=== PATIENT | male | born 1970 | race Caucasian/White ===

== ENCOUNTER 2022-01-07 10:23 | Outpatient (CLI) | payer OTHER, SELFPAY ==
--- NOTE | ~2022-01-07 | XR_ITS ---
EXAM: XR hand BI arthritis min 3V DATE: 01/07/2022 11:01 HISTORY: chronic Polyarthritis . COMPARISON: None available. FINDINGS: Normal mineralization. No fracture or dislocation. No lytic or blastic lesion. Narrowing, sclerosis, and pronounced osteophytosis involving multiple joints including the DIP and PIP joints of the fingers, MCP joints, and some interphalangeal joints, most severe in the second and third bilate ral MCP and PIP joints. Hooklike osteophytes at the bilateral second and third metacarpals. Degenerat jennifer change in the right DRUJ. No erosion or periosteal change. No chondrocalcinosis. Soft tissue swel ling over the involved joints. IMPRESSION: Osteoarthritic type joint changes detailed above, in an atypical distribution which may i ndicate presence of posttraumatic change, CPPD, or hemachromatosis. Reviewed, dictated and finalized at location K. IMPRESSION: Osteoarthritic type joint changes detailed above, in an atypical di stribution which may indicate presence of posttraumatic change, CPPD, or hemach romatosis.
[2022-01-07 10:40] LABS: Hematocrit 46.4 % (40.0-54.0); Hemoglobin 15.4 g/dL (14.0-18.0); Mean Corpuscular HGB Conc 33.2 g/dL (32.0-36.0); Mean Corpuscular Hemoglobin 30.5 pg (27.0-31.0); Mean Corpuscular Volume 91.9 fL (78.0-102.0); Mean Platelet Volume 10.4 fl (8.7-11.0); Platelet Count Result 288 K/mm3 (150-420); Red Blood Count 5.05 M/mm3 (4.70-6.10); Red Cell Distribution Width 14.5 % (11.6-14.4); White Blood Count 11.5 K/mm3 (4.8-10.8)
[2022-01-07 10:57] LABS: Rheumatoid Factor Screen Negative (Negative)
[2022-01-07 11:15] LABS: Alanine Aminotransferase 47 U/L (16-63); Albumin Level 3.9 g/dL (3.4-5.0); Anion Gap 8 mmol/L (8-16); Aspartate Amino Transferase 28 U/L (15-37); Bilirubin,Total 0.3 mg/dL (0.00-1.00); Blood Urea Nitrogen 14 mg/dL (7-18); Carbon Dioxide 29 mmol/L (21-32); Chloride 103 mmol/L (98-108); Estimated Glomerular Filt Rate > 60; Glucose 109 mg/dL (70-99); Osmolality Calculated 291 mOsm/kg (285-295); Potassium 4.7 mmol/L (3.5-5.1); Sodium 140 mmol/L (136-145); Total Protein 6.7 g/dL (6.4-8.2); Triglycerides 76 mg/dL (0-150)
[2022-01-07 11:16] LABS: Alkaline Phosphatase 41 U/L (46-116); Cholesterol 195 mg/dL (0-200); HDL Direct 50 mg/dL (40-60); LDL Cholesterol Calculated 130 mg/dL (<130); Prostate Specific Antigen 2.3 ng/mL (< OR = 4.0)
[2022-01-07 11:19] LABS: CRP < 0.2 mg/dL (0.0-0.9)
[2022-01-13 21:26] LABS: ANA Cascade Screen Negative (Negative)
== END 2022-01-07 10:24 | disposition home or self-care (01) ==
LOC: CHSLAB 10:25
PROVIDERS: PCP Family Medicine; Visit Provider Family Medicine
DX: M13.0 Polyarthritis, unspecified (principal); I10 Essential (primary) hypertension; R35.1 Nocturia
CPT/HCPCS: 36415; 73130; 80053; 80061; 84153; 85027; 86038; 86140; 86430; G0103

== ENCOUNTER 2022-02-19 01:21 | Day surgery (SDC) | payer OTHER, SELFPAY ==
[2022-02-05 11:48] VITALS: BMI 27.6
[2022-02-19 08:37] VITALS: BP 129/83; PULSE 86; RESP 19; TEMP 36.2; O2SAT 99
[2022-02-19] MEDS: LACTATED RINGERS 1,000 ML 150 ML IV CONT (08:53)
--- NOTE | 2022-02-19 09:07 | WPDANESEPPF ---
Anes - Initial Pre Proc Eval Procedure: Operation Date: 02/19/22 09:45 Proposed Procedures p Screening Colonoscopy - Logan Elliott DO Date/Time: 02/19/22 09:07 Surgeon: Logan Elliott DO Pre Op Diagnosis: neoplasm screening Patient Data Age: 52 Gender: M Height: 1.68 m Weight: 75.8 kg Last Vital Signs Temp 97.1 F L 02/19/22 08:37 Pulse 86 02/19/22 08:37 Resp 19 02/19/22 08:37 BP 129/83 02/19/22 08:37 Pulse Ox 99 02/19/22 08:37 O2 Del Method Room Air 02/19/22 08:37 Allergies Allergy/AdvReac Type Severity Reaction Status Date / Time No Known Allergies Allergy Unknown Verified 02/19/22 08:36 Home Medications Medication Instructions Recorded Confirmed Type famotidine 10 mg tablet (Pepcid AC) 10 mg PO DAILY PRN Heartburn 08/01/19 02/05/22 History multivitamin 1 tablet PO DAILY 08/01/19 02/05/22 History meloxicam 15 mg tablet 15 mg PO DAILY #90 tabs 09/29/21 02/05/22 Rx lisinopril 20 1 tablet PO DAILY #30 tabs 02/16/22 02/19/22 Rx mg-hydrochlorothiazide 25 mg tablet Patient hx anesthesia problems: none Family hx anesthesia problems: none Results Review: All pre-operative results and documents have been reviewed as part of the pre-operative evaluation. [facility] Past Medical History Medical History Chronic arthralgias of knees and hips Erectile dysfunction GERD (gastroesophageal reflux disease) HTN (hypertension) Tobacco use disorder Surgical History Surgical History History of bilateral hip replacements 07/2016 and 10/2016 Family History Family History Mother Family history of pancreatic cancer Patient's mother is Father Patient's father is Other Diabetes mellitus Family history of arthritis Family history of malignant neoplasm Social History Social History Years smoked: 32 Smoking status: Current some day smoker Second hand tobacco smoke exposure: Yes Alcohol intake: current Drinks per week: 6 Alcohol use details: beers Substance use: current Substance use type: marijuana Living arrangements: alone 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 Informed Consent: The patient's anesthetic plan and its attendant risks and benefits were discussed with the patient/family/POA. Questions were solicited and answers provided to the satisfaction of the patient/family/POA.
--- NOTE | 2022-02-19 09:25 | PM.IMHP ---
H&P: HPI History of Present Illness Date/Time: 02/19/22 09:25 Chief Complaint: Screening for colorectal cancer Narrative: this is a 52-year-old man who presents for colonoscopy. He has never had a colonoscopy before. He denies any hematochezia or melena. He does have a family history of colon cancer in his grandmother, but no first-degree family members. Review of Systems Review of Systems: All systems reviewed & are unremarkable except as noted in HPI and below Constitutional: Constitutional: Denies chills, Denies fever(s), Denies headache(s) and Denies weight loss Eyes: Eyes: Denies change in vision ENT: Denies dizziness, Denies headache(s), Denies neck mass and Denies throat swelling Cardiovascular: Cardiovascular: Denies chest pain, Denies lightheadedness and Denies dyspnea Respiratory: Respiratory: Denies cough, Denies dyspnea and Denies wheezing Gastrointestinal: Gastrointestinal: Denies abdominal pain, Denies change in bowel habits, Denies nausea and Denies vomiting Genitourinary: Genitourinary: Denies hematuria and Denies dysuria Musculoskeletal: Musculoskeletal: Reports as per HPI Integumentary/Breasts: Skin/Breast: Reports as per HPI Neurologic: Denies dizziness and Denies headache(s) Allergic/Immunologic: Allergic/Immunologic: Denies throat swelling and Denies wheezing PMFSH Past Medical History Medical History Chronic arthralgias of knees and hips Erectile dysfunction GERD (gastroesophageal reflux disease) HTN (hypertension) Tobacco use disorder Surgical History Surgical History History of bilateral hip replacements 07/2016 and 10/2016 Family History Family History Mother Family history of pancreatic cancer Patient's mother is Father Patient's father is Other Diabetes mellitus Family history of arthritis Family history of malignant neoplasm Social History Social History Years smoked: 32 Smoking status: Current some day smoker Second hand tobacco smoke exposure: Yes Alcohol intake: current Drinks per week: 6 Alcohol use details: beers Substance use: current Substance use type: marijuana Living arrangements: alone 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 Gender identity (if verbalized by the patient): Male Spiritual care concerns: No Meds Home Medications and Allergies Home Medications Medication Instructions Recorded Confirmed Type famotidine 10 mg tablet (Pepcid AC) 10 mg PO DAILY PRN Heartburn 08/01/19 02/05/22 History multivitamin 1 tablet PO DAILY 08/01/19 02/05/22 History meloxicam 15 mg tablet 15 mg PO DAILY #90 tabs 09/29/21 02/05/22 Rx lisinopril 20 1 tablet PO DAILY #30 tabs 02/16/22 02/19/22 Rx mg-hydrochlorothiazide 25 mg tablet Allergies Allergy/AdvReac Type Severity Reaction Status Date / Time No Known Allergies Allergy Unknown Verified 02/19/22 08:36 Vital Signs Vital Signs - 24 hr 02/19/22 08:37 Temperature 36.2 C L Pulse Rate 86 Respiratory Rate 19 Blood Pressure 129/83 Pulse Oximetry 99 Oxygen Delivery Room Air Exam Const: General: no acute distress and alert Orientation/consciousness: patient oriented x3 HENMT: Head: normocephalic and atraumatic Ears: hearing grossly normal bilaterally General nose exam: Normal nares present Mouth: Yes Normal oral and palatal mucosa present Eyes: Periorbital: periorbital findings normal Sclera: sclerae normal EOM: EOMs intact bilaterally Neck: Neck: normal visual inspection, no lymphadenopathy and trachea midline Chest: Chest palpation & inspection: normal inspection of the chest Resp: Effort & Inspection: normal respiratory effort Auscultation: clear to auscultation bilaterally Cardio: Ju
[2022-02-19 10:09] VITALS: BP 97/59; PULSE 78; RESP 20; O2SAT 94
[2022-02-19 10:19] VITALS: BP 109/75; PULSE 72; RESP 19; O2SAT 100
[2022-02-19 10:29] VITALS: BP 125/85; PULSE 70; RESP 19; O2SAT 100
== END 2022-02-19 10:38 | disposition home or self-care (01) ==
PROVIDERS: PCP Family Medicine; Visit Provider Surgery
PROC: 0DJD8ZZ Inspection of Lower Intestinal Tract, Via Natural or Artificial Opening Endoscopic (ICD-10-PCS; CPT 45378; principal; 2022-02-19 09:45)
DX: Z12.11 Encounter for screening for malignant neoplasm of colon (principal); D12.5 Benign neoplasm of sigmoid colon; D12.8 Benign neoplasm of rectum; K63.5 Polyp of colon; K57.30 Diverticulosis of large intestine without perforation or abscess without bleeding; Z80.0 Family history of malignant neoplasm of digestive organs; K64.8 Other hemorrhoids; K21.9 Gastro-esophageal reflux disease without esophagitis; I10 Essential (primary) hypertension; F17.210 Nicotine dependence, cigarettes, uncomplicated; F12.90 Cannabis use, unspecified, uncomplicated
CPT/HCPCS: 45385; 45380; 88305; J2704; J7120

== ENCOUNTER 2022-08-05 10:28 | Outpatient (CLI) | payer OTHER, SELFPAY ==
--- NOTE | ~2022-08-05 | XR_ITS ---
XR hand RT min 3V DATE: 08/05/2022 11:01 INDICATION: Severe right elbow pain, radiating to shoulder and hand. No known injury. TECHNIQUE: 3 views of right hand COMPARISON: 01/07/2022 bilateral hands FINDINGS: First through fourth metacarpophalangeal osteophytic change, involving particularly the fir st through third MCP joints. Osteoarthritic change at the proximal and distal interphalangeal joints. No fracture or dislocation, periosteal reaction or bone destruction, erosive change or chondrocalcino sis. IMPRESSION: Polyarticular osteoarthritis Reviewed, dictated and finalized at location B. SAFETY MANAGER
--- NOTE | ~2022-08-05 | XR_ITS ---
EXAM: XR elbow RT min 3V DATE: 08/05/2022 11:01 HISTORY: SEVERE RT ELBOW PAIN INTO SHOULDER/HAND,NKI,?GOUT,LROM . COMPARISON: None available. FINDINGS: Normal mineralization. No acute fracture or dislocation. No lytic or blastic lesion. Ossif ic fragments medially may represent old avulsion fractures or fractured osteophytes/enthesophytes. Mo derate joint space narrowing narrowing, sclerosis, and osteophytosis. No erosion or periosteal change . Small elbow joint effusion. Soft tissue swelling about the elbow. IMPRESSION: Moderate osteoarthritis of the right elbow. No radiographic findings to suggest crystalli ne arthropathy. Small elbow joint effusion, likely related to degenerative changes in the absence of trauma. Reviewed, dictated and finalized at location K. M CLOTHES PRESS OPERATOR IMPRESSION: Moderate osteoarthritis of the right elbow. No radiographic finding s to suggest crystalline arthropathy. Small elbow joint effusion, likely relate d to degenerative changes in the absence of trauma.
[2022-08-05 10:46] LABS: Hematocrit 44.6 % (40.0-54.0); Mean Corpuscular HGB Conc 33.6 g/dL (32.0-36.0); Mean Corpuscular Volume 89.2 fL (78.0-102.0); Mean Platelet Volume 9.7 fl (8.7-11.0); Platelet Count Result 286 K/mm3 (150-420); White Blood Count 12.4 K/mm3 (4.8-10.8)
[2022-08-05 11:13] LABS: Alanine Aminotransferase 40 U/L (16-63); Albumin Level 3.7 g/dL (3.4-5.0); Alkaline Phosphatase 46 U/L (46-116); Anion Gap 7 mmol/L (8-16); Aspartate Amino Transferase 26 U/L (15-37); Bilirubin,Total 0.7 mg/dL (0.00-1.00); Blood Urea Nitrogen 15 mg/dL (7-18); CRP 9.7 mg/dL (0.0-0.9); Calcium 9.1 mg/dL (8.5-10.1); Carbon Dioxide 32 mmol/L (21-32); Chloride 98 mmol/L (98-108); Estimated Glomerular Filt Rate > 60; Glucose 102 mg/dL (70-99); Osmolality Calculated 284 mOsm/kg (285-295); Potassium 4.2 mmol/L (3.5-5.1); Sodium 137 mmol/L (136-145); Total Protein 7.1 g/dL (6.4-8.2); Uric Acid 5.2 mg/dL (3.5-7.2)
[2022-08-09 08:11] LABS: ANA Cascade Screen Negative (Negative)
[2022-08-09 13:56] LABS: HLA B27 Negative (Negative)
== END 2022-08-05 10:29 | disposition home or self-care (01) ==
LOC: CHSLAB 10:30
PROVIDERS: PCP Family Medicine; Visit Provider Family Medicine
DX: M25.521 Pain in right elbow (principal); M79.641 Pain in right hand; M19.021 Primary osteoarthritis, right elbow; M25.421 Effusion, right elbow
CPT/HCPCS: 36415; 73080; 73130; 80053; 84550; 85027; 86038; 86140; 86430; 86812

== ENCOUNTER 2023-02-11 09:35 | Outpatient (CLI) | payer OTHER, SELFPAY ==
--- NOTE | ~2023-02-11 | XR_ITS ---
XR elbow LT min 3V 02/11/2023 10:25 Indication: Polyarthritis Procedure: 4 views left elbow Comparison: No prior studies for comparison. Findings: There is mild-moderate osteoarthritis of the elbow. There are ossific densities adjacent to the humeral epicondyles and medial to the joint space, likely related to degenerative change and/or remote trauma. No acute fracture or traumatic malalignment. No significant joint effusion. Impression: 1: Mild-moderate polyarticular osteoarthritis. Reviewed, dictated and finalized at location L. Impression: 1: Mild-moderate polyarticular osteoarthritis.
--- NOTE | ~2023-02-11 | XR_ITS ---
Thoracic spine: Clinical Indication: Polyarthritis AP and lateral views were performed. No fracture is seen. There is advanced degenerative disc narrowing at T11-T12, with moderate degenera tive disc narrowing from T8 through T11. Paravertebral soft tissues appear normal. Impression: Degenerative disc changes of the lower thoracic spine, as detailed above. Reviewed, dictated and finalized at location . Impression: Degenerative disc changes of the lower thoracic spine, as detailed above.
--- NOTE | ~2023-02-11 | XR_ITS ---
Lumbosacral Spine: AP and lateral views Clinical History: Pain Findings: There is 31 degrees levoscoliosis of the lumbar spine. There is severe degenerative disc na rrowing throughout the lumbar spine. There is moderate to severe facet arthropathy throughout the lum bar spine. 5 mm retrolisthesis of L3 over L4 noted. Probable mild compression of 40-1. The interverte bral disc spaces are preserved. The sacroiliac joints are normally outlined. Impression: Probable mild chronic compression deformity of L1. 31 degree levoscoliosis with advanced degenerative spondylosis of the lumbar spine, as detailed above . 5 mm retrolisthesis of L3 over L4. Reviewed, dictated and finalized at location M. Impression: Probable mild chronic compression deformity of L1. 31 degree levoscoliosis with advanced degenerative spondylosis of the lumbar sp ine, as detailed above. 5 mm retrolisthesis of L3 over L4.
--- NOTE | ~2023-02-11 | XR_ITS ---
Right elbow Technique: AP, oblique, and lateral views were obtained. Clinical History: Polyarthritis Findings: No acute fracture or dislocation is seen. Osseous alignment is anatomic. There moderate to advanced elbow joint degenerative change, with prominent spurring, especially the coronoid process.. There is enthesopathic change at the medial epicondyle. There is no displacement of the fat pads, and soft tissues are unremarkable. Impression: Moderate to severe osteoarthritis of the elbow joint, as detailed above. Reviewed, dictated and finalized at location M. Impression: Moderate to severe osteoarthritis of the elbow joint, as detailed above.
--- NOTE | ~2023-02-11 | XR_ITS ---
Bilateral Hands Technique: Bilateral PA, oblique, and lateral views, and ball-catcher's view were obtained. Clinical History: Polyarthritis Findings: No acute fracture or dislocation is seen. There is moderate degenerative change of the inte rphalangeal joint of the left thumb, as well as the left second through fifth PIP joints, and the sec ond and third left MCP joints. There is moderate degenerative change of the interphalangeal joint of the right thumb, as well as the right PIP and DIP joints diffusely, as well as the right second and t hird MCP joints.. Soft tissues are unremarkable. Impression: Extensive osteoarthritis bilaterally, predominantly involving the interphalangeal joints and bilatera l second and third MCP joints. Reviewed, dictated and finalized at location M. Impression: Extensive osteoarthritis bilaterally, predominantly involving the interphalange al joints and bilateral second and third MCP joints.
[2023-02-11 09:54] LABS: Basophils Absolute Auto 0.03 K/mm3 (0.00-0.10); Basophils Percent Auto 0.4 % (0.0-1.0); Eosinophils Absolute Auto 0.33 K/mm3 (0.02-0.50); Eosinophils Percent Auto 4.4 % (1.0-6.0); Hematocrit 41.7 % (40.0-54.0); Immature Granulocyte Absolute 0.03 K/mm3 (0.00-0.00); Immature Granulocyte Percent A 0.4 % (0.0-0.0); Lymphocytes Absolute Auto 1.89 K/mm3 (1.10-4.50); Lymphocytes Percent Auto 25.1 % (18.0-42.0); Mean Corpuscular HGB Conc 33.6 g/dL (32.0-36.0); Mean Corpuscular Hemoglobin 30.7 pg (27.0-31.0); Mean Corpuscular Volume 91.4 fL (78.0-102.0); Mean Platelet Volume 10.1 fl (8.7-11.0); Monocytes Absolute Auto 0.78 K/mm3 (0.10-0.90); Monocytes Percent Auto 10.4 % (2.0-11.0); Neutrophils Absolute Auto 4.5 K/mm3 (1.7-7.2); Neutrophils Percent Auto 59.3 % (50.0-70.0); Platelet Count Result 306 K/mm3 (150-420); Red Blood Count 4.56 M/mm3 (4.70-6.10); Red Cell Distribution Width 15.2 % (11.6-14.4); White Blood Count 7.5 K/mm3 (4.8-10.8)
[2023-02-11 10:31] LABS: Rheumatoid Factor Screen Negative (Negative)
[2023-02-11 10:37] LABS: Alanine Aminotransferase 49 U/L (16-63); Albumin Level 3.7 g/dL (3.4-5.0); Alkaline Phosphatase 43 U/L (46-116); Anion Gap 9 mmol/L (8-16); Aspartate Amino Transferase 51 U/L (15-37); Bilirubin,Total 0.4 mg/dL (0.00-1.00); Blood Urea Nitrogen 13 mg/dL (7-18); Calcium 9.2 mg/dL (8.5-10.1); Carbon Dioxide 26 mmol/L (21-32); Chloride 101 mmol/L (98-108); Estimated Glomerular Filt Rate > 60; Glucose 106 mg/dL (70-99); Osmolality Calculated 282 mOsm/kg (285-295); Potassium 3.8 mmol/L (3.5-5.1); Sodium 136 mmol/L (136-145); Total Protein 6.4 g/dL (6.4-8.2)
[2023-02-11 10:42] LABS: CRP < 0.5 mg/dL (0.0-0.9)
[2023-02-16 11:43] LABS: ANA Cascade Screen Negative (Negative)
[2023-02-18 11:00] LABS: HLA B27 Negative (Negative)
== END 2023-02-11 09:36 | disposition home or self-care (01) ==
PROVIDERS: PCP Family Medicine; Visit Provider Family Medicine
DX: M13.0 Polyarthritis, unspecified (principal); M41.86 Other forms of scoliosis, lumbar region; M43.06 Spondylolysis, lumbar region
CPT/HCPCS: 36415; 72072; 72100; 73080; 73130; 80053; 85025; 86038; 86140; 86430; 86812

== ENCOUNTER 2023-02-15 08:35 | Outpatient (RCR) | payer OTHER, SELFPAY ==
--- NOTE | 2023-02-15 09:52 | PTOPEVAL1 ---
Assessment and note entered by Osmar Muse Evaluation Information Assessment Status Evaluation Diagnosis polyarthritis Onset 02/11/23 Subjective Information Pt. reports that he has had years of back and arm pain. He describes pain through the elbows, hands and low back. He states that he has multiple arhtritic joints. He reports that he has undergone bilateral IVANA in the past. Pt. reports that he is not currently working due to not having many job opportunities. He reports that he cannot stand long enough to sweep the house or do the dishes. He reports that he can currently walk for about 10 minutes before having to sit down. He states pain in his back will wake him at night frequently. He reports that he would like to participate in therapy in order to walk more normally. Reported Pain Level Pain Score 7: Self Report Assessment PT Clinical Summary Pt. is a 53 year old male who enters the clinic due to development of polyarthritis leading to functional decline. He presents with impaired lumbar mobility, impaired flexibility, impaired postural awareness, generalized l.e. weakness, impaired gait, and functional decline. Continued skilled PT is indicated in order to improve these areas to improve pt. standing tolerance to allow for more efficient performs of ADL's and IADL's. Plan of Care Interventions Electrical Stimulation,Gait Training,Hot Pack/Cold Pack,Manual Therapy,Mechanical Traction,Neuro Re- education,Patient/Caregiver Educati,Therapeutic Activities,Therapeutic Exercise,Self-Care/Home Management PT Services Indicated Yes Treatment Frequency and 3x/week x 12 visits Duration These treatments will address the objective and functional deficits as defined above. The patient will be advanced safely and appropriately in order for the patient to progress towards his/her prior level of function. Additional exercises will be introduced and as well as a comprehensive home exercise program upon discharge, if needed, ?to ensure carryover of functional gains achieved in the clinic. This treatment plan has been reviewed and agreement upon by the patient.
--- NOTE | 2023-02-15 09:53 | OPREHPOC ---
Outpatient Therapy Plan of Care This is a Multidisciplinary Plan of Care that may contain components documented by all disciplines (PT, OT, and ST.) PT Problem 1 PT Problem #1 Knowledge Deficit PT Goal 1 Goal Independent with a HEP addressing trunk mobility and core strength. Target Visit 2 PT Problem 2 PT Problem #2 Impaired Functional Mobil PT Goal 1 Goal Pt. will be able to complete the 6 minute walk test over a distance of 800' or greater with improved stride length. Target Visit 12 PT Goal 2 Goal Pt. will be able to stand for duration of 20 minutes in order to be more efficient with household duties and IADL's. Target Visit 12 PT Problem 3 PT Problem #3 Impaired Gait PT Goal 1 Goal Pt. will present with improved stride length on both right and left upon visual assessment. Target Visit 12 PT Problem 4 PT Problem #4 Pain PT Goal 1 Goal Pt. will report pain levels at 5/10 at worst with prolonged standing activities.
== END 2023-02-26 23:59 | disposition home or self-care (01) ==
LOC: CHSPT 08:35
PROVIDERS: PCP Family Medicine; Visit Provider Family Medicine
DX: M13.0 Polyarthritis, unspecified (principal)
CPT/HCPCS: 97014; 97110; 97161; G0283

== ENCOUNTER 2023-02-28 20:15 | Emergency (ER) | payer OTHER, SELFPAY ==
[2023-02-28 20:16] VITALS: BP 137/96; PULSE 99; RESP 18; TEMP 37.2; O2SAT 98
[2023-02-28] MEDS: KETOROLAC (*BKC) 60 MG/2 ML VIAL IM (20:43)
[2023-02-28] MEDS: cefTRIAXone 1 GM, LIDOCAINE HCL 1% LOCAL INJ 2.1 ML IM (20:43)
--- NOTE | 2023-02-28 20:47 | ED.EXTPRO ---
HPI - Extremity Problem General Chief complaint: Extremity Problem,Nontraumatic Stated complaint: Right Hand Swelling Source: patient Mode of arrival: ambulatory Limitations: no limitations History of Present Illness HPI Narrative: patient is a 53-year-old male with a right hand swelling after noticing a few days ago there was a small site of infection possibly from an insect. This area was popped and continued to have oozing and pus. Now he is here with a large swollen right hand. tetanus up-to-date in the past 6 years per patient. MD Complaint: extremity pain and extremity swelling Onset (ago): day(s) Pain Consistency: constant Location: right and upper extremity Severity scale (1-10): 6 Quality: aching and sharp Radiation: proximal and distal Relieving factors: immobilization Exacerbating factors: range of motion, weight bearing and palpation Associated symptoms: denies other symptoms Context: history of gout Related Data Home Medications Medication Instructions Recorded Confirmed famotidine 10 mg tablet (Pepcid AC) 10 mg PO DAILY PRN Heartburn 08/01/19 02/28/23 Allergies Allergy/AdvReac Type Severity Reaction Status Date / Time No Known Allergies Allergy Unknown Verified 02/11/23 07:23 Review of Systems Review of Systems: All systems reviewed & are unremarkable except as noted in HPI and below Constitutional: Constitutional: Reports no additional constitutional complaints Eyes: Eyes: Reports no additional eye complaints ENT: Reports system reviewed and no additional complaints, except as documented Cardiovascular: Cardiovascular: Reports no additional cardiovascular complaints Respiratory: Respiratory: Reports no additional respiratory complaints Gastrointestinal: Gastrointestinal: Reports no additional gastrointestinal complaints Genitourinary: Genitourinary: Reports no additional male genitourinary complaints Musculoskeletal: Musculoskeletal: Reports no additional musculoskeletal complaints Integumentary/Breasts: Skin/Breast: Reports system reviewed and no additional complaints, except as docu Neurologic: Reports system reviewed and no additional complaints, except as documented Psychiatric: Psychiatric: Reports no additional psychiatric complaints Endocrine: Endocrine: Reports no additional endocrine complaints Hematologic/Lymphatic: Hematologic/Lymphatic: Reports no additional hematologic/lymphatic complaints Allergic/Immunologic: Allergic/Immunologic: Reports no additional allergic/immunologic complaints PMFSH Past Medical History Medical History Chronic arthralgias of knees and hips Erectile dysfunction GERD (gastroesophageal reflux disease) Gout HTN (hypertension) Tobacco use disorder Surgical History Surgical History History of bilateral hip replacements 07/2016 and 10/2016 Family History Family History Mother Family history of pancreatic cancer Patient's mother is Father Patient's father is Other Diabetes mellitus Family history of arthritis Family history of malignant neoplasm Social History Social History Years smoked: 32 Smoking status: Current some day smoker Second hand tobacco smoke exposure: Yes Alcohol intake: current Drinks per week: 6 Alcohol use details: beers Substance use: current Substance use type: marijuana Living arrangements: alone Occupation/Education: occupation 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
[2023-02-28] MEDS: CLINDAMYCIN HCL 150 MG CAP 300 MG PO (21:03)
== END 2023-02-28 21:05 | disposition home or self-care (01) ==
PROVIDERS: Emergency Provider Emergency Medicine; PCP Family Medicine
DX: L03.113 Cellulitis of right upper limb (principal); I10 Essential (primary) hypertension; K21.9 Gastro-esophageal reflux disease without esophagitis; F17.200 Nicotine dependence, unspecified, uncomplicated; F12.90 Cannabis use, unspecified, uncomplicated; Z79.891 Long term (current) use of opiate analgesic
CPT/HCPCS: 96372; 99284; A9270; J0696; J1885

== ENCOUNTER 2023-03-01 13:25 | Emergency (ER) | payer OTHER, SELFPAY ==
[2023-03-01 13:49] VITALS: BP 126/95; PULSE 88; RESP 16; TEMP 37; O2SAT 96
--- NOTE | 2023-03-01 13:49 | ED.EXTPRO ---
HPI - Extremity Problem General Chief complaint: Extremity Problem,Nontraumatic Stated complaint: right hand cellulitis Time Seen by Provider: 03/01/23 13:46 Source: patient and RN notes reviewed Mode of arrival: ambulatory Limitations: no limitations History of Present Illness HPI Narrative: patient here yesterday for an abscess on his right hand. Apparently he had some drainage and some swelling in his hand and was started on clindamycin. He saw his primary care provider today and now he has some streaking going up his right arm and the cellulitis seems to be progressing. MD Complaint: extremity pain and extremity swelling Onset (ago): day(s) (2) Pain Consistency: constant Location: right and upper extremity Quality: burning, aching, dull and constant Radiation: proximal Relieving factors: nothing Exacerbating factors: nothing Associated symptoms: denies other symptoms Related Data Allergies Allergy/AdvReac Type Severity Reaction Status Date / Time No Known Allergies Allergy Unknown Verified 03/01/23 10:38 Review of Systems Review of Systems: All systems reviewed & are unremarkable except as noted in HPI and below Constitutional: Constitutional: Denies chills and Denies fever(s) Gastrointestinal: Gastrointestinal: Denies nausea and Denies vomiting PMFSH Past Medical History Medical History Carpal tunnel syndrome Chronic arthralgias of knees and hips Erectile dysfunction GERD (gastroesophageal reflux disease) Gout HTN (hypertension) Tobacco use disorder Surgical History Surgical History History of bilateral hip replacements 07/2016 and 10/2016 Family History Family History Mother Family history of pancreatic cancer Patient's mother is Father Patient's father is Other Diabetes mellitus Family history of arthritis Family history of malignant neoplasm Social History Social History Years smoked: 32 Smoking status: Current some day smoker Second hand tobacco smoke exposure: Yes Alcohol intake: current Drinks per week: 6 Alcohol use details: beers Substance use: current Substance use type: marijuana Living arrangements: alone Occupation/Education: occupation 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 Gender identity (if verbalized by the patient): Male Spiritual care concerns: No Exam Const: General: healthy appearing, no acute distress and alert Nutritional Appearance: well nourished Orientation/consciousness: patient oriented x3 Limitations: no limitations HENMT: Head: normal to inspection Ears: external ears normal Face/Nose/Sinus: Normal external nose present Face and sinus: normal facial exam Mouth: Yes moist mucous membranes Eyes: Conjunctivae: conjunctivae normal Pupils: Equal, round and reactive pupils present EOM: EOMs intact bilaterally Neck: Neck: normal visual inspection Resp: Effort & Inspection: normal respiratory effort Auscultation: clear to auscultation bilaterally Cardio: Rate: regular rate Rhythm: regular rhythm GI: GI Palp: Yes Soft to palpation and No Tenderness to palpation present (GI) Auscultation: normal bowel sounds Back/Spine/Pelvis: Cervical Spine: cervical ROM normal Thoracic/Lumbar Spine: thoraco-lumbar ROM normal Skin: General skin exam: normal color Neuro: General: patient oriented x3, moves all extremities, no focal motor deficits and CN's II-XI intact bilaterally Speech: normal speech Gait exam (Neuro): Normal gait present Extrem: General: no clubbing, cyanosis or edema Right upper extremity: elbow/forearm tenderness other ( distal forearm), swelling other ( distal forearm), normal ROM, warmth ( distal dorsal forearm) and other ( erythema with some mild strea
[2023-03-01 14:00] VITALS: BP 132/93; PULSE 92; RESP 18; O2SAT 98
[2023-03-01 14:22] LABS: Basophils Absolute Auto 0.03 K/mm3 (0.00-0.10); Basophils Percent Auto 0.2 % (0.0-1.0); Eosinophils Absolute Auto 0.08 K/mm3 (0.02-0.50); Eosinophils Percent Auto 0.6 % (1.0-6.0); Hemoglobin 14.3 g/dL (14.0-18.0); Immature Granulocyte Absolute 0.07 K/mm3 (0.00-0.00); Immature Granulocyte Percent A 0.5 % (0.0-0.0); Lymphocytes Absolute Auto 1.21 K/mm3 (1.10-4.50); Lymphocytes Percent Auto 8.4 % (18.0-42.0); Mean Corpuscular Hemoglobin 31.4 pg (27.0-31.0); Mean Corpuscular Volume 92.1 fL (78.0-102.0); Mean Platelet Volume 10.1 fl (8.7-11.0); Monocytes Absolute Auto 1.36 K/mm3 (0.10-0.90); Monocytes Percent Auto 9.4 % (2.0-11.0); Neutrophils Absolute Auto 11.7 K/mm3 (1.7-7.2); Neutrophils Percent Auto 80.9 % (50.0-70.0); Platelet Count Result 248 K/mm3 (150-420); Red Blood Count 4.56 M/mm3 (4.70-6.10); Red Cell Distribution Width 14.7 % (11.6-14.4); White Blood Count 14.5 K/mm3 (4.8-10.8)
[2023-03-01 14:30] VITALS: BP 127/98; PULSE 94; RESP 16; O2SAT 97
[2023-03-01 14:47] LABS: Alanine Aminotransferase 28 U/L (16-63); Albumin Level 3.1 g/dL (3.4-5.0); Alkaline Phosphatase 45 U/L (46-116); Anion Gap 8 mmol/L (8-16); Aspartate Amino Transferase 16 U/L (15-37); Bilirubin,Total 0.7 mg/dL (0.00-1.00); Blood Urea Nitrogen 10 mg/dL (7-18); Calcium 9.3 mg/dL (8.5-10.1); Carbon Dioxide 27 mmol/L (21-32); Chloride 101 mmol/L (98-108); Estimated CRCL calculation 93 ml/min; Estimated Glomerular Filt Rate > 60; Glucose 120 mg/dL (70-99); Osmolality Calculated 282 mOsm/kg (285-295); Potassium 3.4 mmol/L (3.5-5.1); Sodium 136 mmol/L (136-145); Total Protein 6.9 g/dL (6.4-8.2)
[2023-03-01 14:52] LABS: Lactic Acid Reflex 0.9 mmol/L (0.4-2.0)
[2023-03-01] MEDS: ceFAZolin 1 GM/NS 50 ML 1 GM/50 ML BAG IVPB (15:03)
[2023-03-01 15:29] VITALS: PULSE 93; RESP 16; O2SAT 99
--- NOTE | 2023-03-01 15:41 | PC.NURSE ---
PT UP TO RR WITHOUT DIFFICULTY.
--- NOTE | 2023-03-01 16:17 | PM.EVENT ---
Event Note Event Note Event Note: I was asked to evaluate the patient for possible admission to [facility] while the patient was in the emergency department. ER provider Dr. Licea wanted to admit patient on IV antibiotics for right hand cellulitis and abscess. When I examined the patient there is a complex fluctuance extending over the entire dorsum of the hand as well as protruding to the ulnar aspect the wrist circumferentially with a fullness the palmar surface that will require complex incision and drainage verses OR washout by my assessment. Made contact with hand surgery on-call at [facility] in [place] and Dr. Ross would have Plastics Resident see the patient in consult on arrival if admitted by hospitalist. Spoke to hospitalist Dr. Cool who accepted patient in transfer to [facility] with plastic surgery consult. Dr. Cool requested Vancomycin and Zosyn to be given. This information was passed on to ER team and Dr. Licea put the order in for these medications. Patient will be assigned a bed for direct admit and [facility] will call ER for nurse to nurse report.
[2023-03-01] MEDS: PIPERACILLN/TAZ 3.375GM/NS50ML 3.375 GM/50 ML BAG IVPB (16:58)
[2023-03-01 17:21] VITALS: BP 124/90; PULSE 90; RESP 18; TEMP 37.2; O2SAT 99
[2023-03-01] MEDS: HYDROmorphone HCL INJ (*CRX) 2 MG/ML VIAL 1 MG IV PUSH (17:46)
--- NOTE | 2023-03-07 13:42 | PC.NURSE ---
blood culture noted no growth after 5 days
== END 2023-03-01 17:57 | disposition short-term general hospital (02) ==
PROVIDERS: Emergency Provider Emergency Medicine; PCP Family Medicine
DX: L03.113 Cellulitis of right upper limb (principal); I10 Essential (primary) hypertension; F17.200 Nicotine dependence, unspecified, uncomplicated; F12.90 Cannabis use, unspecified, uncomplicated
CPT/HCPCS: 36415; 80053; 83605; 85025; 86140; 87040; 96365; 96367; 96375; 99285; J0690; J1170; J2543; J3370

== ENCOUNTER 2023-07-29 12:33 | Outpatient (CLI) | payer OTHER, SELFPAY ==
--- NOTE | ~2023-07-29 | XR_ITS ---
EXAMINATION: XR thoracic spine 3V, XR lumbar spine 2-3V DATE: 07/29/2023 13:04 INDICATION: Dorsalgia and bilateral leg pain TECHNIQUE: 1. One AP, lateral and lateral swimmer's views of the thoracic spine were obtained. 2. AP, lateral and coned-down lateral lumbosacral views of the lumbar spine were obtained. COMPARISON: 02/11/2023 FINDINGS: 25 degrees thoracolumbar dextroscoliosis measured between T10 and L1 and 35 degrees lumbar levoscolio sis measured between L1 and L4. Thoracic sagittal alignment is normal. 5 mm retrolisthesis L3 on L4. Unchanged minimal left anterior wedging at T11 and up to 20% left-sided vertebral body height loss at T12. Multilevel mild to moderate thoracic disc height loss with lower thoracic predominance. There i s severe left-sided disc height loss at T11-T12 and L4-L5 and severe right-sided predominant disc hei ght loss at L2-L3 and L3-L4. Moderate disc height loss at T12-L1, L1-L2 and L5-S1. IMPRESSION: 1. No interval change in a moderate S-shaped scoliosis of the lumbar and lower thoracic spine with se carrie lumbar and moderate to severe lower thoracic spondylosis. Reviewed, dictated and finalized at location L. [facility] IMPRESSION: 1. No interval change in a moderate S-shaped scoliosis of the lumbar and lower thoracic spine with severe lumbar and moderate to severe lower thoracic spondyl osis.
[2023-07-29 13:46] LABS: Prostate Specific Antigen 2.3 ng/mL (< OR = 4.0)
== END 2023-07-29 12:34 | disposition home or self-care (01) ==
LOC: CHSLAB 12:34
PROVIDERS: PCP Family Medicine; Visit Provider Family Medicine
DX: M54.9 Dorsalgia, unspecified (principal); G89.29 Other chronic pain; R35.1 Nocturia; M41.86 Other forms of scoliosis, lumbar region; M43.06 Spondylolysis, lumbar region
CPT/HCPCS: 36415; 72072; 72100; 84153; G0103

== ENCOUNTER 2023-08-25 09:19 | Outpatient (CLI) | payer OTHER, SELFPAY ==
--- NOTE | 2023-08-25 11:00 | NEURO_ITS ---
Impression: # Non-Diabetic complains of bilateral hand pain. # Bilateral ulnar neuropathy across the elbows. # Mild evolving left Carpal Tunnel Syndrome. # Needle/EMG exam neurogenic in 1st DI and Abd Dig Min. Nerve Conduction Studies Anti Sensory Summary Table Stim Site NR Peak (ms) P-T Amp (?V) Site1 Site2 Delta-P (ms) Dist (cm) Ajay (m/s) Left Median Anti Sensory (2-3nd Digit) Wrist 3.0 35.2 Wrist 2-3nd Digit 3.0 14.0 47 Wrist 3.0 27.6 Wrist 2-3nd Digit 3.0 14.0 47 Right Median Anti Sensory (2-3nd Digit) Wrist 2.8 26.5 Wrist 2-3nd Digit 2.8 14.0 50 Wrist 2.8 31.0 Wrist 2-3nd Digit 2.8 14.0 50 Left Radial Anti Sensory (Base 1st Digit) Wrist 2.0 30.1 Wrist Base 1st Digit 2.0 0.0 Right Radial Anti Sensory (Base 1st Digit) Wrist 2.2 11.7 Wrist Base 1st Digit 2.2 0.0 Left Ulnar Anti Sensory (5th Digit) Wrist 2.7 13.6 Wrist 5th Digit 2.7 14.0 52 Right Ulnar Anti Sensory (5th Digit) NO RESPONSE Wrist NR Wrist 5th Digit 14.0 Motor Summary Table Stim Site NR Onset (ms) O-P Amp (mV) Site1 Site2 Delta-0 (ms) Dist (cm) Ajay (m/s) Left Median Motor (Abd Poll Brev) Wrist 4.5 3.1 Elbow Wrist 4.9 29.0 59 Elbow 9.4 4.0 Right Median Motor (Abd Poll Brev) Wrist 3.8 2.4 Elbow Wrist 4.8 28.0 58 Elbow 8.6 2.1 Left Ulnar Motor (Abd Dig Minimi) Wrist 2.9 5.7 A Elbow Wrist 6.2 30.0 48 A Elbow 9.1 4.5 B Elbow Wrist 3.7 22.0 59 B Elbow 6.6 3.9 Right Ulnar Motor (Abd Dig Minimi) Wrist 2.7 2.8 A Elbow Wrist 6.0 30.0 50 A Elbow 8.7 1.9 B Elbow Wrist 3.1 20.0 65 B Elbow 5.8 1.6 F Wave Studies NR F-Lat (ms) L-R F-Lat (ms) Left Median (Mrkrs) (Abd Poll Brev) 28.67 0.51 Right Median (Mrkrs) (Abd Poll Brev) 29.18 0.51 Left Ulnar (Mrkrs) (Abd Dig Min) 28.96 0.21 Right Ulnar (Mrkrs) (Abd Dig Min) 28.75 0.21 EMG Side Muscle Nerve Root Ins Act Fibs Amp Dur Recrt Comment Right 1stDorInt Ulnar C8-T1 Nml Nml Nml >12ms +1 Right Ext Indicis Radial (Post Int) C7-8 Nml Nml Nml Nml Nml Right Ext Digitorum Radial (Post Int) C7-8 Nml Nml Nml Nml Nml Right BrachioRad Radial C5-6 Nml Nml Nml Nml Nml Right PronatorTeres Median C6-7 Nml Nml Nml Nml Nml Right Abd Poll Brev Median C8-T1 Nml Nml Nml Nml Nml Right ABD Dig Min Ulnar C8-T1 Nml Nml Nml >12ms +1 Left 1stDorInt Ulnar C8-T1 Nml Nml Nml >12ms +1 Left Ext Indicis Radial (Post Int) C7-8 Nml Nml Nml Nml Nml Left Ext Digitorum Radial (Post Int) C7-8 Nml Nml Nml Nml Nml Left BrachioRad Radial C5-6 Nml Nml Nml Nml Nml Left PronatorTeres Median C6-7 Nml Nml Nml Nml Nml Left Abd Poll Brev Median C8-T1 Nml Nml Nml Nml Nml Left ABD Dig Min Ulnar C8-T1 Nml Nml Nml >12ms +1 MTDD
== END 2023-08-25 09:20 | disposition home or self-care (01) ==
LOC: ANHNEURO 09:20
PROVIDERS: PCP Family Medicine; Visit Provider Family Medicine
DX: R20.0 Anesthesia of skin (principal); G56.23 Lesion of ulnar nerve, bilateral upper limbs; G56.02 Carpal tunnel syndrome, left upper limb
CPT/HCPCS: 95886; 95911

== ENCOUNTER 2023-11-19 09:10 | Outpatient (CLI) | payer OTHER, SELFPAY ==
[2023-11-19 09:23] LABS: Basophils Absolute Auto 0.03 K/mm3 (0.00-0.10); Basophils Percent Auto 0.4 % (0.0-1.0); Eosinophils Absolute Auto 0.38 K/mm3 (0.02-0.50); Eosinophils Percent Auto 4.7 % (1.0-6.0); Hematocrit 42.9 % (40.0-54.0); Hemoglobin 14.5 g/dL (14.0-18.0); Immature Granulocyte Absolute 0.02 K/mm3 (0.00-0.00); Immature Granulocyte Percent A 0.2 % (0.0-0.0); Lymphocytes Absolute Auto 2.08 K/mm3 (1.10-4.50); Lymphocytes Percent Auto 25.7 % (18.0-42.0); Mean Corpuscular HGB Conc 33.8 g/dL (32-36); Mean Corpuscular Hemoglobin 31.2 pg (27.0-31.0); Mean Corpuscular Volume 92.3 fL (78.0-102.0); Mean Platelet Volume 9.7 fl (8.7-11.0); Monocytes Absolute Auto 0.86 K/mm3 (0.10-0.90); Monocytes Percent Auto 10.6 % (2.0-11.0); Neutrophils Absolute Auto 4.72 K/mm3 (1.70-7.20); Neutrophils Percent Auto 58.4 % (50.0-70.0); Platelet Count Result 267 K/mm3 (150-420); Red Blood Count 4.65 M/mm3 (4.70-6.10); Red Cell Distribution Width 14.4 % (11.6-14.4); White Blood Count 8.1 K/mm3 (4.8-10.8)
--- NOTE | 2023-11-19 09:23 | ECG_ITS ---
Test Date: 2023-11-19 09:29:55 Measurements Intervals [place] Rate: 82 P: 71 OK: 119 QRS: 81 QRSD: 87 T: 72 QT: 348 QTc: 408 Interpretive Statements SINUS RHYTHM WITH SHORT OK INTERVAL ABNORMAL ECG No previous ECG available for comparison Electronically Signed On 11-19-2023 11:03:30 CDT by Eliud Noel M.D.
[2023-11-19 09:43] LABS: Alanine Aminotransferase 34 U/L (16-63); Albumin Level 3.3 g/dL (3.4-5.0); Alkaline Phosphatase 31 U/L (46-116); Anion Gap 10 mmol/L (4-12); Aspartate Amino Transferase 24 U/L (15-37); Bilirubin,Total 0.3 mg/dL (0.00-1.00); Blood Urea Nitrogen 15 mg/dL (7-18); Calcium 8.4 mg/dL (8.5-10.1); Carbon Dioxide 26 mmol/L (21-32); Chloride 103 mmol/L (98-108); Estimated Glomerular Filt Rate > 60; Glucose 114 mg/dL (70-99); Osmolality Calculated 289 mOsm/kg (285-295); Potassium 3.8 mmol/L (3.5-5.1); Sodium 139 mmol/L (136-145); Total Protein 6.2 g/dL (6.4-8.2)
== END 2023-11-19 09:11 | disposition home or self-care (01) ==
LOC: CHSLAB 09:12
PROVIDERS: PCP Family Medicine; Visit Provider Family Medicine
DX: I10 Essential (primary) hypertension (principal); R94.31 Abnormal electrocardiogram [ECG] [EKG]
CPT/HCPCS: 36415; 80053; 85025; 93005

== ENCOUNTER 2023-11-29 01:46 | Day surgery (SDC) | payer OTHER, SELFPAY ==
[2023-11-23 11:12] VITALS: BMI 25.0
--- NOTE | 2023-11-23 11:20 | PC.NURSE ---
Report to the Outpatient Waiting Room, entrance under the green pavilion located off [facility], at time _0800_ on date _[id number]_. Planned Procedure Time: _1000_. Time changes happen often and if your time is changed the preop area will call you the afternoon before. - You and your visitor will be asked to self-screen and do not enter if you have any COVID symptoms. - A mask is optional within the hospital at this time. Patients may have clear liquids (water, carbonated beverages, clear teas, apple juice) until 3 hours prior to surgery with a maximum of 20 ounces. - No food from midnight until time of surgery Take the following medications with a SIP of water the morning of surgery: ___None DO NOT STOP ANY OF YOUR OTHER PRESCRIPTION MEDICATIONS PRIOR TO SURGERY ?EXCEPT THE FOLLOWING Medications to discontinue per physician Patient says he will hold Meloxicam until after surgery.___ Date to take last dose Please no make-up, nail ku[place]i, hairspray, perfume, deodorant, or body powder the day of surgery. No jewelry (including any body piercings) or valuables the day of surgery, leave them at home. Please take a shower or bath the night before, or the morning of, surgery with an antibacterial soap. Wear comfortable, loose fitting clothing. - Jewelry must be removed prior to entering the operating room. Rings and piercings that are not removed may be cut off. - The hospital will not accept responsibility for valuables. - Please leave all valuables, including medications, at home the day of surgery. If you are going home after surgery, a licensed milk wagon driver must drive you home. - NO public transportation without another adult if you receive anesthesia. - We recommend that an adult stay with you for 24 hours following discharge. - We also recommend that you do not drive, make important decision, drink alcoholic beverages, or take any drugs that were not prescribed by your health care provider for at least 24 hours after your discharge time. Follow any additional instructions given to you from your surgeon. If you or anyone in your household have experienced Covid symptoms in the past week, please notify your surgeon or the nurse liaison at the phone number below for possible testing. Telephone instructions given to _Jameson__and asked if any additional questions and then verbalized understanding. Patient advised to call surgeon office or pre surgery nurse liaison [phone] if any additional questions.
--- NOTE | 2023-11-24 06:22 | PM.IMHP ---
H&P: HPI History of Present Illness Date/Time: 11/24/23 06:22 Chief Complaint: Carpal Tunnel Syndrome LEFT Cubittal Tunnel Syndrome LEFT Narrative: Patient has numbness and tingling both hands LEFT>RIGHT. He has numbness in all 5 fingers. His EMG shows Carpal and Cubittal Tunnel. Review of Systems Musculoskeletal: Musculoskeletal: Reports arthralgias and Reports joint swelling PMFSH Past Medical History Medical History Carpal tunnel syndrome Chronic arthralgias of knees and hips Erectile dysfunction GERD (gastroesophageal reflux disease) Gout HTN (hypertension) Tobacco use disorder Surgical History Surgical History History of bilateral hip replacements 07/2016 and 10/2016 Family History Family History Mother Family history of pancreatic cancer Patient's mother is Father Patient's father is Other Diabetes mellitus Family history of arthritis Family history of malignant neoplasm Social History Social History Smoking packs per day: 0.5 Smoking cigarettes per day: 10.0 Years smoked: 35 Smoking pack-years: 17.50 Smoking status: Current every day smoker Tobacco type: cigarettes Second hand tobacco smoke exposure: Yes Alcohol intake: current Drinks per week: 6 Alcohol use details: beers Substance use: current Substance use type: marijuana Other substance usage details: 4 times a week. 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 He has a positive phalens and carpal tunnel compression test at thee wrist. He has a positive phalens and cubittal tunnel compression test at the elbow. Eyes: General: appearance normal, both eyes and all related structures Neck: Neck: supple Resp: Effort & Inspection: normal respiratory effort Cardio: Rate: regular rate Rhythm: regular rhythm Assessment and Plan Assessment and plan (1) Cubital tunnel syndrome on left: Code(s): G56.22 - Lesion of ulnar nerve, left upper limb Status: Acute Assessment and Plan: Patient has carpal and cubital tunnel Left. He has failed conservative treatment. He would like to proceed with Release of his LEFT carpal and Cubital Tunnels. Discussed risks, benefits, limitations and alternative in detail. Will proceed (2) Carpal tunnel syndrome of left wrist: Code(s): G56.02 - Carpal tunnel syndrome, left upper limb Status: Acute
[2023-11-29 08:37] VITALS: BMI 25.2
--- NOTE | 2023-11-29 08:47 | WPDANESEPPF ---
Anes - Initial Pre Proc Eval Procedure: Operation Date: 11/29/23 10:00 Proposed Procedures p Left Carpal and Cubital Tunnel Release - Kojo Howe MD Date/Time: 11/29/23 08:47 Surgeon: Kojo Howe MD Pre Op Diagnosis: Left carpal & cubital tunnel syndrome Patient Data Age: 53 Gender: M Height: 1.68 m Weight: 71 kg Allergies Allergy/AdvReac Type Severity Reaction Status Date / Time No Known Allergies Allergy Unknown Verified 11/29/23 08:25 Home Medications Medication Instructions Recorded Confirmed Type lisinopril 20 See Rx Instructions .Route 08/26/23 11/23/23 Rx mg-hydrochlorothiazide 25 mg tablet .COMPLEX #90 tabs meloxicam 15 mg tablet See Rx Instructions .Route 09/24/23 11/23/23 Rx .COMPLEX #90 tabs Patient hx anesthesia problems: none Family hx anesthesia problems: none Results Review: All pre-operative results and documents have been reviewed as part of the pre-operative evaluation. [facility] Past Medical History Medical History Carpal tunnel syndrome Chronic arthralgias of knees and hips Erectile dysfunction GERD (gastroesophageal reflux disease) Gout HTN (hypertension) Tobacco use disorder Surgical History Surgical History History of bilateral hip replacements 07/2016 and 10/2016 Family History Family History Mother Family history of pancreatic cancer Patient's mother is Father Patient's father is Other Diabetes mellitus Family history of arthritis Family history of malignant neoplasm Social History Social History Smoking packs per day: 0.5 Smoking cigarettes per day: 10.0 Years smoked: 35 Smoking pack-years: 17.50 Smoking status: Current every day smoker Tobacco type: cigarettes Second hand tobacco smoke exposure: Yes Alcohol intake: current Drinks per week: 6 Alcohol use details: beers Substance use: current Substance use type: marijuana Other substance usage details: 4 times a week. 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 Informed Consent: The patient's anesthetic plan and its attendant risks and benefits were discussed with the patient/family/POA. Questions were solicited and answers provided to the satisfaction of the patient/family/POA.
[2023-11-29] MEDS: ACETAMINOPHEN 500 MG TABLET 1000 MG PO (08:59)
[2023-11-29] MEDS: KETOROLAC 15 MG/ML VIAL (*BKC) IV PUSH (08:59)
[2023-11-29 09:09] VITALS: BP 109/77; PULSE 78; RESP 16; TEMP 36.6; O2SAT 100
[2023-11-29] MEDS: LACTATED RINGERS 1,000 ML 30 ML IV CONT ×2 (09:12→11:07)
--- NOTE | 2023-11-29 10:02 | WPDHPUPDATE1 ---
History and Physical Update Update Date/Time: 11/29/23 10:02 History and Physical has been reviewed, including an updated exam of the patient. There are NO changes in the patient's condition. Risks, benefits, and alternatives have been discussed and questions answered. Patient agrees to proceed with procedure.
[2023-11-29] MEDS: ceFAZolin 2 GM/D5W 50 ML 2 GM/50 ML BAG IVPB (10:05)
[2023-11-29] MEDS: LIDOCAINE HCL 1% LOCAL INJ 20 ML VIAL 10 ML INFILTRATE (10:28)
--- NOTE | 2023-11-29 10:47 | P.OP_ITS ---
Procedure Note - Detailed Date of Procedure 11/29/23 Pre-op Diagnosis Left carpal & cubital tunnel syndrome Post-op Diagnosis Same Procedure Performed LEFT carpal tunnel release LEFT cubital tunnel release Surgeon Kojo Howe MD Tying In Machine Operator David Anesthesia MAC Indications Pain and Numbness Description of Procedure A general anesthetic was administered. The elbow was identified on the left side. Curvilinear incision made just under the epicondylar region. Dissection carried gently down over the ulnar nerve. The ulnar nerve identified the carpal cubital tunnel was released under direct vision, protecting the nerve. At this point there was seen to be no further impingement of the nerve. Only 2 small twitches were felt. The nerve was in continuity. The wound irrigated hemostasis obtained and closed with 2-0 Vicryl and 3-0 Prolene. Sterile dressing applied. A general anesthetic was administered. After sterile prep and drape, I injected the area of intended incision with 10ml of 1% lidocaine. A longitudinal incision was made in line with the ulnar boarder of the third finger. Dissection carried down to the fascia, the fascia split and the carpal ligament identified. The carpal ligament was released and the flexor retinaculum was released as well. The nerve was noted to be red purple in color and in continuity. The wound was irrigated, hemostasis was obtained and closed with 3- 0 prolene. Estimated Blood Loss 20 Drains No Packing No Pathology None sent Complications No immediate complications Condition Stable Disposition Same day [facility] Billing Surgery - Charge Forward: Surgery Billing ([id number] Carpal Tunnel & [id number] Cubital Tunnel)
[2023-11-29 11:08] VITALS: BP 115/71; PULSE 78; RESP 18; O2SAT 99
[2023-11-29 11:35] VITALS: BP 110/76; PULSE 64; RESP 18; O2SAT 99
[2023-11-29 12:05] VITALS: BP 118/91; PULSE 65; RESP 18
== END 2023-11-29 12:22 | disposition home or self-care (01) ==
PROVIDERS: PCP Family Medicine; Visit Provider Orthopaedic Surgery
PROC: (CPT 64721; principal; 2023-11-29 10:00)
DX: G56.02 Carpal tunnel syndrome, left upper limb (principal); G56.22 Lesion of ulnar nerve, left upper limb; I10 Essential (primary) hypertension; M10.9 Gout, unspecified; K21.9 Gastro-esophageal reflux disease without esophagitis; F17.210 Nicotine dependence, cigarettes, uncomplicated; F12.90 Cannabis use, unspecified, uncomplicated
CPT/HCPCS: 64721; 64718; A9270; J0690; J1885; J2250; J2704; J3010; J7120